=== PATIENT | female | born 1985 | race Caucasian/White ===

== ENCOUNTER → 2016-05-18 | Outpatient (CLI) | payer BC | LOC: RAD 14:42 | PROVIDERS: ATTEND Obstetrics & Gynecology Gynecology | DX: N97.9 Female infertility, unspecified (principal) | CPT/HCPCS: 58340; 74740 ==

== ENCOUNTER → 2017-09-30 | Outpatient (CLI) | payer BC | LOC: OD 11:33 | PROVIDERS: ATTEND Nurse Practitioner Primary Care | DX: Z32.00 Encounter for pregnancy test, result unknown (principal) | CPT/HCPCS: 36415; 84702 ==

== ENCOUNTER → 2017-12-02 | Outpatient (CLI) | payer BC | LOC: OD 13:55 | PROVIDERS: ATTEND Nurse Practitioner Primary Care | DX: O20.0 Threatened abortion (principal); Z3A.00 Weeks of gestation of pregnancy not specified | CPT/HCPCS: 36415; 84702 ==

== ENCOUNTER → 2017-12-06 | Outpatient (CLI) | payer BC | LOC: OD 09:45 | PROVIDERS: ATTEND Nurse Practitioner Primary Care | DX: O20.0 Threatened abortion (principal) | CPT/HCPCS: 36415; 84702 ==

== ENCOUNTER → 2017-12-08 | Outpatient (CLI) | payer BC | LOC: OD 07:06 | PROVIDERS: ATTEND Nurse Practitioner Primary Care | DX: O20.0 Threatened abortion (principal) | CPT/HCPCS: 36415; 84702 ==

== ENCOUNTER → 2017-12-13 | Outpatient (CLI) | payer BC | LOC: OD 07:19 | PROVIDERS: ATTEND Nurse Practitioner Primary Care | DX: O20.0 Threatened abortion (principal) | CPT/HCPCS: 36415; 84702 ==

== ENCOUNTER → 2017-12-16 | Outpatient (CLI) | payer BC | LOC: OD 10:02 | PROVIDERS: ATTEND Nurse Practitioner Primary Care | DX: O20.0 Threatened abortion (principal) | CPT/HCPCS: 36415; 84702 ==

== ENCOUNTER → 2017-12-20 | Outpatient (CLI) | payer BC | LOC: OD 07:39 | PROVIDERS: ATTEND Nurse Practitioner Primary Care | DX: O20.0 Threatened abortion (principal) | CPT/HCPCS: 36415; 84702 ==

== ENCOUNTER → 2017-12-27 | Outpatient (CLI) | payer BC | LOC: OD 07:17 | PROVIDERS: ATTEND Nurse Practitioner Primary Care | DX: O20.0 Threatened abortion (principal) | CPT/HCPCS: 36415; 84702 ==

== ENCOUNTER → 2018-01-03 | Outpatient (CLI) | payer BC | LOC: OD 08:02 | PROVIDERS: ATTEND Nurse Practitioner Primary Care | DX: O20.0 Threatened abortion (principal) | CPT/HCPCS: 36415; 84702 ==

== ENCOUNTER → 2018-01-11 | Outpatient (CLI) | payer BC | LOC: OD 07:06 | PROVIDERS: ATTEND Nurse Practitioner Primary Care | DX: O20.0 Threatened abortion (principal) | CPT/HCPCS: 36415; 84702 ==

== ENCOUNTER → 2018-06-02 | Outpatient (CLI) | payer BC ==
[2018-06-02 11:55] LABS: ABSOLUTE EOSINOPHILS # (AUTO) 0.1 10^3/uL (0.0-0.6); ABSOLUTE LYMPHOCYTES (AUTO) 2.1 10^3/uL (0.5-4.7); ABSOLUTE MONOCYTES (AUTO) 0.6 10^3/uL (0.1-1.4); ABSOLUTE NEUT (AUTO) 6.8 10^3/uL (1.7-8.2); BASOPHILS % (AUTO) 0.2 % (0-2); EOSINOPHILS % (AUTO) 0.5 % (0-6); HEMATOCRIT 34.3 % (36.0-47.0); HEMOGLOBIN 11.8 g/dL (12.0-15.5); LYMPHOCYTES % (AUTO) 21.7 % (13-45); MEAN CORPUSCULAR HEMOGLOBIN 30.1 pg (27.0-33.4); MEAN CORPUSCULAR HGB CONC 34.4 g/dL (32.0-36.0); MEAN CORPUSCULAR VOLUME 88 fl (80-97); MONOCYTES % (AUTO) 6.7 % (3-13); PLATELET COUNT 373 10^3/uL (150-450); RED BLOOD COUNT 3.92 10^6/uL (3.72-5.28); RED CELL DISTRIBUTION WIDTH 13.6 % (11.5-14.0); SEGMENTED NEUTROPHILS % (AUTO) 70.9 % (42-78); TOTAL CELLS COUNTED % (AUTO) 100 %; WHITE BLOOD COUNT 9.7 10^3/uL (4.0-10.5)
[2018-06-02 12:16] LABS: ALANINE AMINOTRANSFERASE 30 U/L (9-52); ALBUMIN 3.5 g/dL (3.5-5.0); ALKALINE PHOSPHATASE 46 U/L (38-126); ANION GAP 7 (5-19); ASPARTATE AMINO TRANSFERASE 18 U/L (14-36); BILIRUBIN,DIRECT 0.2 mg/dL (0.0-0.4); BILIRUBIN,TOTAL 0.3 mg/dL (0.2-1.3); BLOOD UREA NITROGEN 7 mg/dL (7-20); CALCIUM 9.6 mg/dL (8.4-10.2); CARBON DIOXIDE 24 mmol/L (22-30); CHLORIDE 105 mmol/L (98-107); GLUCOSE 117 mg/dL (75-110); SODIUM 135.7 mmol/L (137-145); TOTAL PROTEIN 6.8 g/dL (6.3-8.2); URIC ACID 2.4 mg/dL (2.5-6.2)
== END ==
LOC: OD 10:33
PROVIDERS: ATTEND Student in an Organized Health Care Education/Training Program
DX: O13.9 Gestational [pregnancy-induced] hypertension without significant proteinuria, unspecified trimester (principal); Z3A.00 Weeks of gestation of pregnancy not specified
CPT/HCPCS: 36415; 80053; 83036; 83615; 84550; 85025

== ENCOUNTER → 2018-06-23 | Outpatient (CLI) | payer BC ==
[2018-06-23 12:06] LABS: FREE T4 (FREE THYROXINE) 0.6 ng/dL (0.78-2.19)
[2018-06-23 12:20] LABS: THYROID STIMULATING HORMONE 2.12 uIU/mL (0.47-4.68)
== END ==
LOC: OD 10:48
PROVIDERS: ATTEND Student in an Organized Health Care Education/Training Program
DX: O26.819 Pregnancy related exhaustion and fatigue, unspecified trimester (principal)
CPT/HCPCS: 36415; 82306; 84439; 84443

== ENCOUNTER 2018-08-02 17:04 | Outpatient (CLI) | payer BC ==
[2018-08-02 17:43] LABS: APPEARANCE,URINE SLIGHTLY-CLOUDY; BILIRUBIN,URINE NEGATIVE (NEGATIVE); COLOR,URINE YELLOW; GLUCOSE, URINE NEGATIVE (NEGATIVE); KETONES,URINE NEGATIVE (NEGATIVE); LEUKOCYTE ESTERASE,URINE SMALL (NEGATIVE); NITRITE,URINE NEGATIVE (NEGATIVE); PROTEIN,URINE 30 mg/dL (NEGATIVE); URINE SPECIFIC GRAVITY 1.027; UROBILINOGEN,URINE NEGATIVE mg/dL (<2.0)
[2018-08-02 17:59] LABS: URINE AMPHETAMINES SCREEN NEGATIVE; URINE BARBITURATES SCREEN NEGATIVE; URINE BENZODIAZEPINES SCREEN NEGATIVE; URINE COCAINE SCREEN NEGATIVE; URINE MARIJUANA (THC) SCREEN NEGATIVE; URINE METHADONE SCREEN NEGATIVE; URINE PHENCYCLIDINE SCREEN NEGATIVE
== END 2018-08-02 17:53 | disposition home or self-care (01) ==
LOC: LC 17:04
PROVIDERS: ATTEND Obstetrics & Gynecology
PROC: 4A1HXCZ Monitoring of Products of Conception, Cardiac Rate, External Approach (ICD-10-PCS; principal; 2018-08-02)
DX: O22.42 Hemorrhoids in pregnancy, second trimester (principal); Z3A.26 26 weeks gestation of pregnancy
CPT/HCPCS: 80307; 81001

== ENCOUNTER 2018-10-07 14:47 | Outpatient (CLI) | payer BC ==
--- NOTE | 2018-10-07 16:00 | Non Stress Test Report ---
Non Stress Test Datetime Report Generated by CPN: 10/07/2018 16:00 DEMOGRAPHIC EGA NST: 35.4 INDICATION Indication for Study: Ordered by Provider VITAL SIGNS Temperature - NST: 98.0 MONITORING Monitor Explained: Monitor Explained; Test Explained; Patient Verbalized Understanding Time on Monitor: 10/07/2018 15:00 Time off Monitor: 10/07/2018 15:56 NST Duration: 56 NST INTERVENTIONS NST Interventions: Reposition Patient Physician Notified NST: J. Reda CNM on unit, reviewed fht BABY A: [id number] BABY A Movement : Present Contraction Frequency : x1 FHR Baseline : 125 Accelerations : 15X15 Decelerations : None Variability : Moderate 6-25bpm NST Review: Meets Criteria for Reactive NST NST Review and Verified By : Edward German RN NST Results: Reactive NST REPORT Report Trigger: Send Report
== END 2018-10-07 15:25 | disposition home or self-care (01) ==
LOC: LC 14:47
PROVIDERS: ATTEND Student in an Organized Health Care Education/Training Program
PROC: 4A1HXCZ Monitoring of Products of Conception, Cardiac Rate, External Approach (ICD-10-PCS; principal; 2018-10-07)
DX: Z34.83 Encounter for supervision of other normal pregnancy, third trimester (principal)

== ENCOUNTER 2018-10-30 15:18 | Outpatient (CLI) | payer BC ==
[2018-10-30 15:54] LABS: APPEARANCE,URINE SLIGHTLY-CLOUDY; BILIRUBIN,URINE NEGATIVE (NEGATIVE); COLOR,URINE YELLOW; GLUCOSE, URINE 50 mg/dL (NEGATIVE); KETONES,URINE NEGATIVE (NEGATIVE); LEUKOCYTE ESTERASE,URINE LARGE (NEGATIVE); NITRITE,URINE NEGATIVE (NEGATIVE); PROTEIN,URINE 30 mg/dL (NEGATIVE); URINE SPECIFIC GRAVITY 1.027; UROBILINOGEN,URINE NEGATIVE mg/dL (<2.0)
[2018-10-30 16:10] LABS: URINE AMPHETAMINES SCREEN NEGATIVE; URINE BARBITURATES SCREEN NEGATIVE; URINE BENZODIAZEPINES SCREEN NEGATIVE; URINE COCAINE SCREEN NEGATIVE; URINE MARIJUANA (THC) SCREEN NEGATIVE; URINE METHADONE SCREEN NEGATIVE; URINE PHENCYCLIDINE SCREEN NEGATIVE
--- NOTE | 2018-10-30 17:32 | Non Stress Test Report ---
Non Stress Test Datetime Report Generated by CPN: 10/30/2018 17:32 DEMOGRAPHIC EGA NST: 38.6 INDICATION Indication for Study: Ordered by Provider Indication for Study (NST) Other: Labor Check MONITORING Monitor Explained: Monitor Explained; Test Explained; Patient Verbalized Understanding Time on Monitor: 10/30/2018 15:30 Time off Monitor: 10/30/2018 16:16 NST Duration: 46 NST INTERVENTIONS NST Interventions: None Physician Notified NST: Dr. Valladares BABY A: [id number] BABY A Movement : Present Contraction Frequency : irregular Accelerations : 15X15 Decelerations : None Variability : Moderate 6-25bpm NST Review: Meets Criteria for Reactive NST NST Review and Verified By : Daria Camp RNC NST REPORT Report Trigger: Send Report
== END 2018-10-30 16:14 | disposition home or self-care (01) ==
LOC: LC 15:18
PROVIDERS: ATTEND Student in an Organized Health Care Education/Training Program
PROC: 4A1HXCZ Monitoring of Products of Conception, Cardiac Rate, External Approach (ICD-10-PCS; principal; 2018-10-30)
DX: Z34.93 Encounter for supervision of normal pregnancy, unspecified, third trimester (principal)
CPT/HCPCS: 59025; 80307; 81005; 84112

== ENCOUNTER 2018-10-30 20:51 | Inpatient (IN) | payer BC ==
[2018-10-30] MEDS ORDERED: ACETAMINOPHEN 325 MG TABLET PO PRN (20:55)
[2018-10-30] MEDS ORDERED: ZOLPIDEM TARTRATE 5 MG TABLET PO PRN (20:55)
[2018-10-30] MEDS ORDERED: MAG HYDROX/AL HYDROX/SIMETH SUSP 30 ML UDCUP PO PRN (20:55)
[2018-10-30] MEDS ORDERED: RINGERS SOLUTION,LACTATED 1,000 ML IV ONE (21:30)
[2018-10-30] MEDS ORDERED: DINOPROSTONE 10 MG VAGINAL INSERT.SR PV ONE (21:30)
[2018-10-30 21:36] LABS: ABSOLUTE EOSINOPHILS # (AUTO) 0.1 10^3/uL (0.0-0.6); ABSOLUTE LYMPHOCYTES (AUTO) 1.9 10^3/uL (0.5-4.7); ABSOLUTE NEUT (AUTO) 7.4 10^3/uL (1.7-8.2); BASOPHILS % (AUTO) 0.1 % (0-2); EOSINOPHILS % (AUTO) 0.6 % (0-6); HEMATOCRIT 31.2 % (36.0-47.0); HEMOGLOBIN 10.4 g/dL (12.0-15.5); MEAN CORPUSCULAR HEMOGLOBIN 27.7 pg (27.0-33.4); MEAN CORPUSCULAR HGB CONC 33.3 g/dL (32.0-36.0); MEAN CORPUSCULAR VOLUME 83 fl (80-97); MONOCYTES % (AUTO) 9.6 % (3-13); PLATELET COUNT 310 10^3/uL (150-450); RED BLOOD COUNT 3.75 10^6/uL (3.72-5.28); RED CELL DISTRIBUTION WIDTH 14.6 % (11.5-14.0); SEGMENTED NEUTROPHILS % (AUTO) 71.7 % (42-78); TOTAL CELLS COUNTED % (AUTO) 100 %; WHITE BLOOD COUNT 10.3 10^3/uL (4.0-10.5)
[2018-10-30 22:19] LABS: URINE AMPHETAMINES SCREEN NEGATIVE; URINE BARBITURATES SCREEN NEGATIVE; URINE BENZODIAZEPINES SCREEN NEGATIVE; URINE COCAINE SCREEN NEGATIVE; URINE MARIJUANA (THC) SCREEN NEGATIVE; URINE METHADONE SCREEN NEGATIVE; URINE PHENCYCLIDINE SCREEN NEGATIVE
[2018-10-30] MEDS: RINGERS SOLUTION,LACTATED 1,000 ML IV PRN (22:30)
[2018-10-30] MEDS ORDERED: BENZOCAINE/MENTHOL SORE THROAT LOZENGE BUCCAL PRN (22:40)
[2018-10-30] MEDS ORDERED: DINOPROSTONE 10 MG VAGINAL INSERT.SR ONE (22:43)
[2018-10-30] MEDS ORDERED: GLYBURIDE 5 MG TABLET ONE (22:43)
[2018-10-30] MEDS ORDERED: GLYBURIDE 5 MG TABLET PO ONE (23:15)
[2018-10-30 23:47] LABS: CHLAM PCR NOT DETECTED (NOT DETECT)
[2018-10-31] MEDS ORDERED: BENZOCAINE/MENTHOL SORE THROAT LOZENGE ONE (00:11)
[2018-10-31] MEDS: GUAIFENESIN/D-METHORPHAN (200-20 MG) SYRUP 10 ML PO PRN (00:23)
[2018-10-31] MEDS: RINGERS SOLUTION,LACTATED 1,000 ML IV PRN ×2 (04:34→12:11)
[2018-10-31] MEDS ORDERED: MAG HYDROX/AL HYDROX/SIMETH SUSP 30 ML UDCUP ONE ×4 (06:40→17:54)
--- NOTE | 2018-10-31 07:02 | Admission Physical ---
Datetime Report Generated by CPN: 10/31/2018 07:02 CURRENT ADMISSION Chief Complaint: Scheduled Induction of Labor Indication for Induction: Maternal Diabetes Admit Impression : Term, Intrauterine ; No Active Labor; Intact Membranes; Induction of Labor Admit Plan: Admit to Unit; Initiate Labor Induction Protocol ALLERGIES Medication Allergies: No Medication Allergies: No Known Allergies (10/30/2018) Latex: No Latex Allergies Food Allergies: n/a Environmental Allergies: n/a OBSTETRICAL HISTORY EDC: 11/07/2018 00:00 : 2 Para: 0 Term: 0 : 0 SAB: 1 IAB: 0 Ectopic: 0 Livin Cesareans: 0 VBACs: 0 Multiple Births: 0 Gestational Diabetes: Yes Rh Sensitization: No Incompetent Cervix: No SERGIO: No Infertility: Yes ART Treatment: Yes Uterine Anomaly: No IUGR: No Hx Previous C/S: No Macrosomia: No Hx Loss/Stillborn: No PIH: No Hx : No Placenta Previa/Abruption: No Depression/PP Depression: No PTL/PROM: No Post Hemorrhage: No Current Procedures: Ultrasound; NST Obstetrical History Comments: g1-2017- 11 weeks no intervention g2-current conceived femara, gdma2 on glyburide SEE RECORDS Alcohol: No Marijuana : No Cocaine: No Other Illicit Drugs: No Cigarettes: Never Smoker. [id number] MEDICAL HISTORY Diabetes: Yes Diabetes Type: Gestational Diabetes Blood Transfusion: No Pulmonary Disease (Asthma, TB): No Breast Disease: No Hypertension: No Dairy Hand Surgery: No Heart Disease: No Hosp/Surgery: Yes Autoimmune Disorder: No Anesthetic Complications: No Kidney Disease: No Abnormal Pap Smear: Yes Neuro/Epilepsy: No Psychiatric Disorders: No Other Medical Diseases: No Hepatitis/Liver Disease: No Significant Family History: No Varicosities/Phlebitis: No Trauma/Violence : No Thyroid Dysfunction: No Medical History Comments: obesity bmi 48.28 at start of , GDMA2, cholecystecomy, infertility did IUIs and femara conceived on femara, abn pap years ago positive for HPV but no longer tested positive INFECTIOUS HISTORY Gonorrhea: No Genital Herpes: No Chlamydia: No Tuberculosis: No Syphilis: No Hepatitis: No HIV/AIDS Exposure: No Rash or Viral Illness: No HPV: Yes Infectious History Comments: hpv in past but no longer PHYSICAL EXAM General: Normal HEENT: Normal Neurologic: Normal Thyroid: Deferred Heart: Normal Lungs: Normal Breast: Deferred Back: Normal Abdomen: Normal Genitourinary Exam: Normal Extremities: Normal DTRs: Normal Pelvic Type: Adequate Vital Signs: Reviewed VAGINAL EXAM Dilatation: 0 Effacement: 0 Station: -3 Contraction Comments: none MEMBRANES Membranes: Intact FETUS A EGA: 38.6 Monitoring: External US FHR- Baseline: 140 Variability: Moderate 6-25bpm Accelerations: 15X15 Decelerations: None FHR Category: Category I Presentation: Vertex Admit Comment: 33yo at 38+6ega presents for IOL due to A2GDM. Prepreg BMI 48 with 29#weight gain in . Failed early 1 hr and 3 hr GTT now on Glyburide 3.75mg QHS. Consult sent for ECHO due to BMI and early GDM. Matermal cardio referral also placed - EKG unremarkable. ECHO results not in chart. ECHO appears normal. Admit for cervidil. Anticipate . Will notify anesthesia of BMI since anesthesia consult was not done during . PLANS FOR LABOR AND DELIVERY Labor and Delivery: None Pain Management: Medications; Epidural Feeding Preference: Breast Benefit of Breast Feed Discussed: Yes Circumcision: N/A INFORMED CONSENT Informed Consent Obtained: Vaginal Delivery; Risks, Benefits and Alternatives Discussed Signature: with User ID: [email or web address]
[2018-10-31] MEDS ORDERED: OXYTOCIN/NORMAL SALINE 20 UNIT/1,000 ML RTUINJ IV PRN (12:38)
[2018-10-31] MEDS ORDERED: OXYTOCIN/NORMAL SALINE 20 UNIT/1,000 ML RTUINJ ONE (12:56)
[2018-10-31] MEDS ORDERED: OXYTOCIN 10 UNIT/ML VIAL ONE (12:56)
[2018-10-31] MEDS ORDERED: LIDOCAINE 1% INJ-PF (10 MG/ML) 30 ML SDV ONE (12:56)
[2018-10-31] MEDS ORDERED: MISOPROSTOL 0.2 MG TABLET ONE (12:56)
[2018-10-31] MEDS: MAG HYDROX/AL HYDROX/SIMETH SUSP 30 ML UDCUP PO PRN ×2 (13:34→17:58)
[2018-11-01] MEDS ORDERED: MAG HYDROX/AL HYDROX/SIMETH SUSP 30 ML UDCUP ONE (00:25)
[2018-11-01] MEDS: MAG HYDROX/AL HYDROX/SIMETH SUSP 30 ML UDCUP PO PRN (00:27)
[2018-11-01] MEDS ORDERED: NALBUPHINE HCL INJ 10 MG/1 ML AMPULE ONE (02:56)
[2018-11-01] MEDS: RINGERS SOLUTION,LACTATED 1,000 ML IV PRN (03:08)
[2018-11-01] MEDS ORDERED: NALBUPHINE HCL INJ 10 MG/1 ML AMPULE INJ ONE (03:30)
[2018-11-01] MEDS ORDERED: CITRIC ACID/SODIUM CITRATE ORAL SOLN 15 ML UDCUP ONE ×3 (06:31→07:05)
[2018-11-01] MEDS ORDERED: CEFAZOLIN INJ 1 GM VIAL ONE ×2 (06:56→06:58)
[2018-11-01] MEDS ORDERED: KETOROLAC TROMETHAMINE INJ/PF 30 MG/1 ML SDV ONE ×2 (07:33→10:28)
[2018-11-01] MEDS ORDERED: PHENYLEPHRINE HCL INJ/PF 10 MG/1 ML SDV ONE (07:33)
[2018-11-01] MEDS ORDERED: OXYTOCIN 10 UNIT/ML VIAL ONE (07:33)
[2018-11-01] MEDS ORDERED: ACETAMINOPHEN 1,000 MG/100 ML RTUPB IV ONE (07:34)
[2018-11-01] MEDS ORDERED: FENTANYL CITRATE INJ/PF 100 MCG/2 ML AMPUL ONE (07:34)
[2018-11-01] MEDS ORDERED: ONDANSETRON HCL INJ/PF 4 MG/2 ML SDV ONE (07:34)
[2018-11-01] MEDS ORDERED: EPHEDRINE SULFATE INJ 50 MG/1 ML AMPULE ONE ×2 (07:43→08:23)
[2018-11-01] MEDS ORDERED: EPINEPHRINE INJ/PF 1 MG/1 ML AMPULE ONE (07:44)
[2018-11-01] MEDS ORDERED: EPINEPHRINE INJ 1 MG/10 ML DISP.SYRIN ONE (07:47)
[2018-11-01] MEDS ORDERED: METHYLERGONOVINE MALEATE INJ/PF 0.2 MG/1 ML AMPULE ONE (08:35)
[2018-11-01] MEDS ORDERED: MEASLES,MUMPS&RUBELLA VACC/PF 0.5 ML VIAL SUBCUT PRN (09:34)
[2018-11-01] MEDS ORDERED: RINGERS SOLUTION,LACTATED 1,000 ML IV PRN (09:34)
[2018-11-01] MEDS ORDERED: OXYCODONE-ACETAMINOPHEN 5-325 MG TABLET PO PRN (09:34)
[2018-11-01] MEDS ORDERED: ACETAMINOPHEN 325 MG TABLET PO PRN (09:34)
[2018-11-01] MEDS ORDERED: DIPH/PERTUSS(ACELL)/TETANUS VAC/PF 0.5 ML SYR (>=10YO) IM PRN (09:34)
[2018-11-01] MEDS ORDERED: ACETAMINOPHEN 1,000 MG/100 ML RTUPB IV PRN (09:34)
[2018-11-01] MEDS ORDERED: OXYTOCIN/NORMAL SALINE 20 UNIT/1,000 ML RTUINJ IV PRN (09:34)
[2018-11-01] MEDS ORDERED: PROMETHAZINE HCL INJ 25 MG/1 ML VIAL IV PRN (09:34)
[2018-11-01] MEDS ORDERED: SIMETHICONE 80 MG TAB.CHEW PO PRN (09:34)
--- NOTE | 2018-11-01 09:41 | Operative Report ---
Operative Report DATE OF SURGERY: 11/01/18 PREOPERATIVE DIAGNOSIS: IUP @ 39 02/14, failure to progress, NRFHTs, intole thomas to contractions POSTOPERATIVE DIAGNOSIS: same OPERATION: primary low transverse section SURGEON: HANNAH RAMÍREZ ANESTHESIA: Spinal COMPLICATIONS: none QUANTITATIVE BLOOD LOSS: 1,850 INTRAOPERATIVE FINDINGS: female cephalic, apgars 8/9, meconium PROCEDURE: PROCEDURE IN DETAIL: The patient was taken to the operating room, prepared and draped in a normal sterile fashion in a supine position with a leftward tilt. A transverse skin incision was made with a scalpel and carried through to the underlying layer of fascia with the same scalpel. The fascia was excised in the midline and extended laterally with Justino. The fascia was then dissected from the rectus muscle sharply with Justino and the rectus muscle was divided and the peritoneal cavity was entered sharply with the same Metzenbaum. With good visualization of the bladder and the uterus the bladder blade was inserted. The hysterotomy was nicked with a scalpel and extended laterally with surgeon finger fraction. The was then delivered atraumatically. The nose and mouth were suctioned with a suction bulb, the cord was clamped and cut and handed off to awaiting pediatricians. Cord blood was collected. The placenta was removed manually. The uterus was exteriorized and cleared of clots and debris. The hysterotomy was closed with 0 Monocryl in a running, locked fashion. A second layer of the same suture was used to imbricate to ensure hemostasis. The uterus was returned to the abdomen and peritoneal cavity was cleared of clots and debris. The rectus muscle and peritoneum were repaired with mattress stitch of 2-0 Chromic. The fascia was closed with 0-Vicryl. The subcutaneous layer was closed with plain catgut and the skin was closed with 4-0 Vicryl. The patient tolerated the procedure well. Sponge, lap, and needle counts correct x2 and the patient was taken to recovery in stable condition.
[2018-11-01] MEDS ORDERED: (PENDING PHARMACY ID) (Prenatal Vits96/Iron Fum/Folic [Prenatal Tablet] 1 EACH) PO SCH (10:00)
--- NOTE | 2018-11-01 11:59 | Delivery Summary ---
Del Sum A-C Datetime Report Generated by CPN: 11/01/2018 11:59 DELIVERY PERSONNEL DELIVERY PERSONNEL: [id number] Delivery Doctor:: Nohelia David MD Anesthesiologist:: Maximino Roca MD Supply Chain Generalist:: Jessica Oleary RN Liquid Compounder/THERAPEUTIC CONSULTANT: Carolyn Lepe, ST MATERNAL INFORMATION Delivery Anesthesia: Spinal Medications After Delivery: Methergine 0.2mg IM; Other-Please Comment Meds After Delivery Comment: cytotec sublingual Estimated Blood Loss (ml): 800 Maternal Complications: None LABOR SUMMARY EDC: 11/07/2018 00:00 No. Babies in Womb: 1 LABOR INFORMATION Cervical Ripening Agents: Cervidil (Annotations: 10mg placed in posterior fornix ) Group B Beta Strep: 1 NO GROUP B STREPTOCOCCUS RECOVERED STAGES OF LABOR Stage 3 hr: 0 Stage 3 min: 20 CSECTION DELIVERY Primary Indication: Failure of Descent Secondary Indication: Nonreassuring Status CSection Urgency: Non-Scheduled CSection Incidence: Primary CSection Incision: Classical BABY A INFORMATION Infant Delivery Date/Time: 11/01/2018 08:28 Method of Delivery: Born in Route : No : N/A Forceps: N/A Vacuum Extraction: N/A Shoulder Dystocia : No PRESENTATION/POSITION BABY A Presentation: Cephalic Cephalic Presentation: N/A PLACENTA INFORMATION BABY A Placenta Delivery Time : 11/01/2018 08:48 Placenta Method of Delivery: Manual Removal Placenta Status: Delivered SCORES BABY A Heart Rate 1 min: >100 bpm Resp Effort 1 min: Good Cry Reflex Irritability 1 min: Grimace Muscle Tone 1 min: Some Flexion of Extremities Color 1 min: Body [place], Extremities Blue SCORE 1 MIN: 7 Heart Rate 5 min: >100 bpm Resp Effort 5 min: Good Cry Reflex Irritability 5 min: Cough or Sneeze or Pulls Away Muscle Tone 5 min: Some Flexion of Extremities Color 5 min: Body [place], Extremities Blue SCORE 5 MIN: 8 INFORMATION BABY A Gestational Age at Delivery: 39+2 Infant Outcome : Liveborn Infant Condition : Stable Sex: Female IDENTIFICATION BABY A Infant Verification Date/Time: 11/01/2018 08:36 ID Band Number: [id number] Mother's Name Verified: Yes Infant RN Verifying Infant: Josey Whitt WEIGHT/LENGTH BABY A Infant Birthweight (gm): 3435 Weight (lb): 7 Weight (oz): 9 Length (in): 19.50 Length (cm): 49.53 CORD INFORMATION BABY A No. Cord Vessels: 3 Nuchal Cord : N/A Cord Blood Taken: Yes-For Storage (Mom's Blood type +) Suction: None ASSESSMENT BABY A Skin to Skin: Yes
[2018-11-01] MEDS: MORPHINE SULFATE 10 MG/ML INJ IV PRN ×2 (12:07→15:17)
[2018-11-01] MEDS: OXYCODONE-ACETAMINOPHEN 5-325 MG TABLET PO PRN ×2 (12:16→20:19)
[2018-11-01] MEDS: IBUPROFEN 800 MG TABLET PO SCH ×2 (17:41→17:48)
[2018-11-01] MEDS: DOCUSATE SODIUM 100 MG CAPSULE PO SCH ×2 (17:47→19:03)
[2018-11-01] MEDS: GUAIFENESIN/D-METHORPHAN (200-20 MG) SYRUP 10 ML PO PRN (18:03)
[2018-11-01] MEDS: PRENATAL VITAMIN W DHA CAPSULE PO SCH (18:59)
[2018-11-01] MEDS ORDERED: GLYBURIDE 5 MG PO SCH (22:00)
[2018-11-01] MEDS ORDERED: GLYBURIDE 5 MG TABLET PO SCH (22:00)
[2018-11-02] MEDS ORDERED: ZOLPIDEM TARTRATE 5 MG TABLET PO PRN (00:30)
[2018-11-02] MEDS: IBUPROFEN 800 MG TABLET PO SCH ×5 (00:52→23:24)
[2018-11-02] MEDS: MAG HYDROX/AL HYDROX/SIMETH SUSP 30 ML UDCUP PO PRN (01:13)
[2018-11-02] MEDS: OXYCODONE-ACETAMINOPHEN 5-325 MG TABLET PO PRN ×2 (04:27→23:24)
[2018-11-02 08:06] LABS: HEMATOCRIT 25.2 % (36.0-47.0); HEMOGLOBIN 8.8 g/dL (12.0-15.5); MEAN CORPUSCULAR HEMOGLOBIN 28.8 pg (27.0-33.4); MEAN CORPUSCULAR VOLUME 82 fl (80-97); PLATELET COUNT 266 10^3/uL (150-450); RED BLOOD COUNT 3.07 10^6/uL (3.72-5.28); RED CELL DISTRIBUTION WIDTH 14.7 % (11.5-14.0); WHITE BLOOD COUNT 9.7 10^3/uL (4.0-10.5)
[2018-11-02] MEDS: DOCUSATE SODIUM 100 MG CAPSULE PO SCH ×2 (10:09→17:23)
[2018-11-02] MEDS: PRENATAL VITAMIN W DHA CAPSULE PO SCH (10:09)
--- NOTE | 2018-11-02 13:16 | PDOC PROGRESS REPORT ---
Subjective-OB Progress Note for:: 11/02/18 Subjective: 33yo G2 now P1 s/p primary ppd1. Pt. ambulating, and voiding without difficulty. Reports pain well tolerated with medication. No concerns at this time. Physical Exam (OB) Vital Signs: Temp Pulse Resp BP Pulse Ox 98.4 F 84 16 118/67 99 11/02/18 11:30 11/02/18 11:30 11/02/18 11:30 11/02/18 11:30 11/02/18 11:30 Intake & Output 11/01/18 11/02/18 11/03/18 06:59 06:59 06:59 Intake Total 1951 Output Total 1949 Balance 1951 -1949 - General General Appearance: Appears well In distress: None - PIH/Pre-Eclampsia DTR's: 1 + Clonus: Negative Headache: Absent Epigastric Pain: No Visual Changes: No - Dressing Removed: No Incision: Dressing Closure Type: op site - Lochia Lochia Amount: Scant < 10 ml Lochia Color: Rubra/Red - Abdomen Description: Tender, Soft, Round Hernia Present: No Fundal Description: Firm, Midline Fundal Height: u/u - u/2 - Respiratory Respiratory Status: No respiratory distress - Extremities Upper extremity: Normal inspection Lower extremities: Normal inspection - Neurological Cognition: Normal Orientation: AAOx4 - Psychological Associated symptoms: Normal affect, Normal mood Objective-Diagnostic Laboratory: 11/02/18 07:18 11/02/18 07:18 WBC 9.7 RBC 3.07 L Hgb 8.8 L Hct 25.2 L MCV 82 MCH 28.8 MCHC 35.0 RDW 14.7 H Plt Count 266 Assessment and Plan(PN) - Assessment and Plan (1) Status post primary low transverse section Is this a current diagnosis for this admission?: Yes Plan: routine pp care (2) hemorrhage Qualifiers: hemorrhage type: unspecified Qualified Code(s): O72.1 - Other immediate hemorrhage Is this a current diagnosis for this admission?: Yes Plan: increase dietary iron and FeSO4 BID, continue to monitor for s/s of decompensation (3) Morbid obesity with body mass index (BMI) of 50.0 to 59.9 in adult Is this a current diagnosis for this admission?: Yes (4) Gestational diabetes mellitus (GDM) during controlled on oral hypoglycemic therapy Is this a current diagnosis for this admission?: Yes Plan: delivered will re-assess at pp visit (5) Acute blood loss anemia Is this a current diagnosis for this admission?: Yes Plan: increase dietary iron and FeSO4 BID - Time Spent with Patient Time with patient: Less than 15 minutes Medications reviewed and adjusted accordingly: Yes - Disposition Anticipated Discharge: Home Within: within 24 hours
[2018-11-03] MEDS: IBUPROFEN 800 MG TABLET PO SCH ×2 (05:24→11:52)
--- NOTE | 2018-11-03 10:01 | PDOC PROGRESS REPORT ---
Subjective-OB Progress Note for:: 11/03/18 Subjective: Ready to go home. Physical Exam (OB) Vital Signs: Temp Pulse Resp BP Pulse Ox 98.9 F 115 H 18 126/74 H 98 11/03/18 07:43 11/03/18 07:43 11/03/18 07:43 11/03/18 07:43 11/03/18 07:43 Intake & Output 11/02/18 11/03/18 11/04/18 06:59 06:59 06:59 Output Total 1950 Balance -1950 - PIH/Pre-Eclampsia DTR's: 1 + Clonus: Negative Headache: Absent Epigastric Pain: No Visual Changes: No - Dressing Removed: No Incision: Dressing Closure Type: op site - Lochia Lochia Amount: Scant < 10 ml Lochia Color: Rubra/Red - Abdomen Description: Soft, Round Hernia Present: No Bowel Sounds: Normoactive Flatus Presence: Present Stool: No Fundal Description: Firm, Midline Fundal Height: u/u - u/2 Objective-Diagnostic Laboratory: 11/02/18 07:18 Assessment and Plan(PN) - Time Spent with Patient Medications reviewed and adjusted accordingly: Yes - Disposition Anticipated Discharge: Home
[2018-11-03] MEDS: PRENATAL VITAMIN W DHA CAPSULE PO SCH (10:07)
[2018-11-03] MEDS: DOCUSATE SODIUM 100 MG CAPSULE PO SCH (10:07)
--- NOTE | 2018-11-03 10:26 | PDOC DISCHARGE SUMMARY ---
Impression - Admit/DC Date/PCP Admission Date/Primary Care Provider: 10/30/18 20:51 TANIA PAULA CNM Discharge Date: 11/03/18 - Discharge Diagnosis (1) Acute blood loss anemia Is this a current diagnosis for this admission?: Yes (2) Failure of descent in labor, delivered, current hospitalization Is this a current diagnosis for this admission?: Yes (3) Gestational diabetes mellitus (GDM) during controlled on oral hypoglycemic therapy Is this a current diagnosis for this admission?: Yes (4) Morbid obesity with body mass index (BMI) of 50.0 to 59.9 in adult Is this a current diagnosis for this admission?: Yes (5) hemorrhage Is this a current diagnosis for this admission?: Yes (6) Status post primary low transverse section Is this a current diagnosis for this admission?: Yes - Additional Information Discharge Diet: Regular Discharge Activity: Activity As Tolerated, Balance Activity w/Rest, No Lifting Over 10 Pounds, No Lifting/Push/Pulling, Pelvic Rest, Slowly Increase Activity, No tub bath Referrals: BECKY HOWE MD [ACTIVE STAFF] - 11/08/18 2:30 pm (PLEASE CALL THE OFFICE FOR ANY QUESTION OR CONCERN.) Prescriptions: Oxycodone HCl/Acetaminophen [Percocet 5-325 mg Tablet] 1 tab PO Q4HP PRN #20 tablet PRN Reason: Docusate Sodium [Colace 100 mg Capsule] 100 mg PO BID #30 capsule Ferrous Sulfate 325 mg PO BID #60 tablet.dr Galvan [Motrin 800 mg Tablet] 800 mg PO Q6 #30 tablet Home Medications: Vits96/Iron Fum/Folic [ Tablet] 1 each PO DAILY 08/02/18 Docusate Sodium [Colace 100 mg Capsule] 100 mg PO BID #30 capsule 11/03/18 Ferrous Sulfate 325 mg PO BID #60 tablet. 11/03/18 Ibuprofen [Motrin 800 mg Tablet] 800 mg PO Q6 #30 tablet 11/03/18 Oxycodone HCl/Acetaminophen [Percocet 5-325 mg Tablet] 1 tab PO Q4HP PRN #20 tablet 11/03/18 HPI Reason(s) for Admission: Induction of Labor, Gestional Diabetes Procedures: Ultrasound Intrapartum Procedure(s): : Low Cervical, Transverse Results Laboratory Results: WBC 9.7 10^3/uL (4.0-10.5) 11/02/18 07:18 RBC 3.07 10^6/uL (3.72-5.28) L 11/02/18 07:18 Hgb 8.8 g/dL (12.0-15.5) L 11/02/18 07:18 Hct 25.2 % (36.0-47.0) L 11/02/18 07:18 MCV 82 fl (80-97) 11/02/18 07:18 MCH 28.8 pg (27.0-33.4) 11/02/18 07:18 MCHC 35.0 g/dL (32.0-36.0) 11/02/18 07:18 RDW 14.7 % (11.5-14.0) H 11/02/18 07:18 Plt Count 266 10^3/uL (150-450) 11/02/18 07:18 Lymph % (Auto) 18.0 % (13-45) 10/30/18 21:20 [place] % (Auto) 9.6 % (3-13) 10/30/18 21:20 Eos % (Auto) 0.6 % (0-6) 10/30/18 21:20 Baso % (Auto) 0.1 % (0-2) 10/30/18 21:20 Absolute Neuts (auto) 7.4 10^3/uL (1.7-8.2) 10/30/18 21:20 Absolute Lymphs (auto) 1.9 10^3/uL (0.5-4.7) 10/30/18 21:20 Absolute Monos (auto) 1.0 10^3/uL (0.1-1.4) 10/30/18 21:20 Absolute Eos (auto) 0.1 10^3/uL (0.0-0.6) 10/30/18 21:20 Absolute Basos (auto) 0.0 10^3/uL (0.0-0.2) 10/30/18 21:20 Seg Neutrophils % 71.7 % (42-78) 10/30/18 21:20 POC Glucose 82 mg/dL (70-110) 11/01/18 03:07 Urine Opiates Screen NEGATIVE 10/30/18 21:20 Urine Methadone Screen NEGATIVE 10/30/18 21:20 Ur Barbiturates Screen NEGATIVE 10/30/18 21:20 Ur Phencyclidine Scrn NEGATIVE 10/30/18 21:20 Ur Amphetamines Screen NEGATIVE 10/30/18 21:20 U Benzodiazepines Scrn NEGATIVE 10/30/18 21:20 Urine Cocaine Screen NEGATIVE 10/30/18 21:20 U Marijuana (THC) Screen NEGATIVE 10/30/18 21:20 RPR NONREACTIVE (NONREACTIVE) 10/30/18 21:20 Chlamydia DNA (PCR) NOT DETECTED (NOT DETECT) 10/30/18 21:20 N.gonorrhoeae DNA (PCR) NOT DETECTED (NOT DETECT) 10/30/18 21:20 Blood Type A POSITIVE 10/30/18 21:20 Antibody Screen NEGATIVE 10/30/18 21:20 Plan Plan of Treatment: RTC WHA 1 wk. Time Spent: Less than 30 Minutes
[2018-11-03 13:40] VITALS: BP 118/67
== END 2018-11-03 14:20 | disposition home or self-care (01) | DRG 787 ==
LOC: LR 20:51 → 2N 11-01 11:25
PROVIDERS: ADMIT Obstetrics & Gynecology; ATTEND Obstetrics & Gynecology
PROC: 10D00Z1 Extraction of Products of Conception, Low, Open Approach (ICD-10-PCS; principal; 2018-11-01)
DX: O24.425 Gestational diabetes mellitus in childbirth, controlled by oral hypoglycemic drugs (principal); O72.1 Other immediate postpartum hemorrhage; D62 Acute posthemorrhagic anemia; O76 Abnormality in fetal heart rate and rhythm complicating labor and delivery; O32.4XX0 Maternal care for high head at term, not applicable or unspecified; O90.81 Anemia of the puerperium; O99.214 Obesity complicating childbirth; E66.01 Morbid (severe) obesity due to excess calories; Z3A.38 38 weeks gestation of pregnancy; Z37.0 Single live birth
CPT/HCPCS: 1961; 36415; 80307; 82962; 85025; 85027; 86592; 86850; 86900; 86901; 87491; 87591; 94799; J0131; J0171; J0690; J1885; J2210; J2270; J2300; J2370; J2405; J2590; J3010; J3490

== ENCOUNTER → 2019-07-10 | Outpatient (CLI) | payer BC ==
[2019-07-10 11:35] LABS: ABSOLUTE EOSINOPHILS # (AUTO) 0.1 10^3/uL (0.0-0.6); ABSOLUTE LYMPHOCYTES (AUTO) 2.7 10^3/uL (0.5-4.7); ABSOLUTE MONOCYTES (AUTO) 0.7 10^3/uL (0.1-1.4); ABSOLUTE NEUT (AUTO) 5.2 10^3/uL (1.7-8.2); BASOPHILS % (AUTO) 0.4 % (0-2); EOSINOPHILS % (AUTO) 1.2 % (0-6); HEMATOCRIT 40.3 % (36.0-47.0); HEMOGLOBIN 13.7 g/dL (12.0-15.5); LYMPHOCYTES % (AUTO) 30.8 % (13-45); MEAN CORPUSCULAR HEMOGLOBIN 29.2 pg (27.0-33.4); MEAN CORPUSCULAR HGB CONC 34.1 g/dL (32.0-36.0); MEAN CORPUSCULAR VOLUME 86 fl (80-97); MONOCYTES % (AUTO) 7.6 % (3-13); PLATELET COUNT 396 10^3/uL (150-450); RED CELL DISTRIBUTION WIDTH 13.6 % (11.5-14.0); TOTAL CELLS COUNTED % (AUTO) 100 %; WHITE BLOOD COUNT 8.7 10^3/uL (4.0-10.5)
[2019-07-10 11:54] LABS: BLOOD UREA NITROGEN 14 mg/dL (7-20); CALCIUM 9.7 mg/dL (8.4-10.2); CHLORIDE 101 mmol/L (98-107); GLUCOSE 95 mg/dL (75-110); POTASSIUM 5.4 mmol/L (3.6-5.0)
[2019-07-10 11:55] LABS: ALBUMIN 4.1 g/dL (3.5-5.0); ALKALINE PHOSPHATASE 59 U/L (38-126); ANION GAP 8 (5-19); ASPARTATE AMINO TRANSFERASE 30 U/L (14-36); BILIRUBIN,TOTAL 0.5 mg/dL (0.2-1.3); CARBON DIOXIDE 27 mmol/L (22-30); CHOLESTEROL 179.39 mg/dL (0-200); TOTAL PROTEIN 7.7 g/dL (6.3-8.2); TRIGLYCERIDES 142 mg/dL (<150)
[2019-07-10 12:06] LABS: DIRECT LDL 111 mg/dL (<100)
== END ==
LOC: LAB 10:44
PROVIDERS: ATTEND Nurse Practitioner Primary Care
DX: E66.01 Morbid (severe) obesity due to excess calories (principal); Z13.0 Encounter for screening for diseases of the blood and blood-forming organs and certain disorders involving the immune mechanism; Z13.1 Encounter for screening for diabetes mellitus; Z13.220 Encounter for screening for lipoid disorders; Z13.29 Encounter for screening for other suspected endocrine disorder; Z13.21 Encounter for screening for nutritional disorder
CPT/HCPCS: 36415; 80053; 80061; 82306; 83036; 84443; 85025

== ENCOUNTER → 2019-08-04 | Outpatient (CLI) | payer BC | LOC: RDC 11:10 | PROVIDERS: ATTEND Registered Nurse | DX: Z03.818 Encounter for observation for suspected exposure to other biological agents ruled out (principal) | CPT/HCPCS: 87635; C9803 ==

== ENCOUNTER → 2019-11-28 | Outpatient (CLI) | payer BC ==
--- NOTE | 2019-11-28 09:51 | ER RDC ASSESSMENT REPORT ---
Intake - In the Last 14 days Have you traveled outside [place]?: No Have you been in close contact with someone CONFIRMED: Yes Worked in Healthcare?: Yes - Symptoms Subjective Fever([place] feverish): No Chills: No Muscule Aches: Yes Runny Nose: Yes Sore Throat: No Cough (New or worsening chronic cough): Yes Shortness of breath: No Nausea or Vomiting: No Headache: Yes Abdominal Pain: No Diarrhea(3 or more loose stools in last 24 hours): No - Do you have any of the following Chronic lung disease: Asthma or emphysema or COPD: No Cystic Fibrosis: No Diabetes: No High Blood Pressure: No Cardiovascular Disease: No Chronic Kidney Disease: No Chronic Liver Disease: No Chronic blood disorder like Sickle Cell Disease: No Weak immune system due to disease or medication: No Neurologic condition that limits movement: No Developmental delay - Moderate to Severe: No Recent (within past 2 weeks) or current : No Morbid Obesity (>100 pounds over ideal weight): Yes - Objective Temperature: 97.7 F Pulse Rate: 89 Respiratory Rate: 18 Blood Pressure: 125/70 O2 Sat by Pulse Oximetry: 95 Objective: Given above, testing performed: If Testing Performed: Test Specimen Type Sent to General - General Information source: Patient Notes: Patient presents RDC for screening for the coronavirus. Patient reports being around family members who recently tested positive. Patient does have symptoms including body aches, runny nose cough and headache. - Related Data Allergies/Adverse Reactions: No Known Allergies Allergy (Verified 10/30/18 21:38) Past Medical History - General Information source: Patient GI Medical History: Reports: Hx Gastroesophageal Reflux Disease Surgical Hx: Negative Physical Exam - Notes Notes: The patient was evaluated during the global Covid 19 pandemic, and that diagnosis was suspected/considered upon their initial presentation. Their evaluation, treatment and testing was consistent with current guidelines for patients who present with complaints or symptoms that may be related to Covid 19. Full physical exam could not be performed due to covid 19 isolation protocols. Constitutional: Nontoxic appearance, no acute distress Eyes: Nonicteric, extraocular movements intact, sclera clear ENT; posterior pharynx clear without exudates Cardiovascular: Heart rate and rhythm regular, no JVD Respiratory: Sounds clear bilaterally, nonlabored breathing, no use of accessory muscles, no tachypnea Gastrointestinal: Abdomen not distended Muculoskeletal: Moves all extremities well Skin: Normal color Neuro: Awake alert oriented, normal speech Psych: Normal mood and affect Diagnostic Results Laboratory Results: Patient presents with upper respiratory symptoms worrisome for possible Covid 19. Patient does not have emergency worrying symptoms such as difficulty breathing, shortness of breath, chest pain, pressure, confusion or cyanosis. Patient appears suitable for discharge as they are not of an advanced age, do not have any chronic medical conditions such as diabetes, CAD, immune deficiency, chronic lung disease or chronic kidney disease. Patient's vital signs are stable and patient is nontoxic in appearance. Good return precautions have been discussed with patient, patient verbalized understanding and is agreeable with discharge plan of care at this time. Patient Education/Counseling Counseling/Education: Patient was provided with discharge information including: As a person under investigation for Covid 19, the [place] department of Health and Human Services, division of public health advises you to adhere to the following guidance until your test results are reported to you. If your test result is positive, you will receive additional information from your provider and your local health department at that time. Remain at home until you are cleared by the health provider or public health authorities. Keep a log of visitors to your home, notify any visitors to your home of your isolation status. If you plan to move to a new address or leave the [facility], notify the local health department in your County. Call your doctor or seek care if you have an urgent medical need. Before seeking medical care, call ahead to get instructions from the provider before arriving at the medical office clinic or hospital. Notify them that you are being tested for the virus that causes Covid 19 so that arrangements can be made, as necessary, to prevent transmission to others in the healthcare setting. Next, notify the local health department in your county. If a medical emergency arises and you need to call 911, inform the first responders that you are being tested for the virus that causes Covid 19. Next, notify the local health department in your county. RDC Discharge - Discharge Clinical Impression: Encounter for screening laboratory testing for COVID-19 virus Condition: Stable Disposition: Home; Selfcare
[2019-11-28 09:56] VITALS: BP 125/70
[2019-11-28 10:39] LABS: A TYPE INFLUENZA AG NEGATIVE (NEGATIVE); B INFLUENZA AG NEGATIVE (NEGATIVE)
== END ==
LOC: RDC 09:25
PROVIDERS: ATTEND Nurse Practitioner Family
DX: U07.1 COVID-19 (principal)
CPT/HCPCS: 87070; 87880; 87077; 87804; 99201; 99211; U0003; C9803; 87635